=== PATIENT | male | born 1970 | race Caucasian/White ===

== ENCOUNTER → 2017-10-25 | Outpatient (CLI) | payer OTHER | LOC: FIMAGING 09:24 | PROVIDERS: ATTEND Surgery | DX: K44.9 Diaphragmatic hernia without obstruction or gangrene (principal) ==

== ENCOUNTER 2017-11-17 05:50 | Observation (INO) | payer OTHER ==
--- NOTE | 2017-11-16 21:10 | GHP ---
A 48-year-old male who is admitted at this time for laparoscopic hiatal hernia repair and Raghavendra fund oplication. He has frequent GERD type symptoms, as well as bloating and constipation. His workup sheikh s demonstrated a hiatal hernia. Risks and options have been fully discussed, and he wishes to procee d with laparoscopic Raghavendra fundoplication. ALLERGIES: Doxycycline, Benadryl, and ampicillin. PAST MEDICAL HISTORY: Includes some exercise asthma, GERD, migraines, right upper quadrant abdominal pain. PAST SURGICAL HISTORY: Includes an ACL repair. FAMILY HISTORY: Positive for colon cancer and ulcerative colitis. SOCIAL HISTORY: Reveals he does not smoke. MEDICATIONS: Nexium and Excedrin. REVIEW OF SYSTEMS: Reveals he has had some black tarry stools, bloating, heartburn, and recurrent st omach pain. No other major medical problems on a full 10-point review of systems. PHYSICAL EXAMINATION: GENERAL: Reveals an alert 48-year-old male in no acute distress. HEAD AND NE CK: Exam benign, without icterus, adenopathy, oral lesions. NECK: Supple, nontender. CHEST: Qing r to auscultation and percussion. CARDIAC: Regular rhythm without murmurs. ABDOMEN: Soft, nontend er, without masses, organomegaly, or bruits. There are no inguinal hernias. GENITALIA: Normal. EX TREMITIES: Benign. Full range of motion. Full pulses. NEUROLOGIC: Physiologic. PSYCH: Reveals him to be alert, oriented, and cooperative. IMPRESSION: Symptomatic hiatal hernia. PLAN: Laparoscopic Raghavendra fundoplication and hiatal hernia repair. /[id number]/MODL
[2017-11-17] MEDS ORDERED: ceFAZolin 2 GM/DEXTROSE 100 ML IV ONE (05:59)
[2017-11-17] MEDS ORDERED: LR 1,000 ML IV ONE (06:00)
[2017-11-17] MEDS ORDERED: LIDOCAINE 1% 2 ML INJ ID PRN (06:00)
[2017-11-17] MEDS ORDERED: ACETAMINOPHEN 500 MG TAB PO PRN (06:57)
[2017-11-17] MEDS ORDERED: MIDAZOLAM 2 MG/2 ML VIAL IVP ONE (06:57)
[2017-11-17] MEDS ORDERED: ALBUTEROL 3 ML DEYVIAL IH PRN (06:57)
[2017-11-17] MEDS ORDERED: ONDANSETRON 4 MG/2 ML VIAL IVP PRN (06:57)
[2017-11-17] MEDS ORDERED: HYDROmorphONE/DILAUDID 2 MG/ML INJ IVP PRN (06:57)
[2017-11-17] MEDS ORDERED: NALOXONE HCL 0.4 MG/ML INJ IVP PRN ×2 (06:57→12:57)
[2017-11-17] MEDS ORDERED: DEXAMETHASONE 4 MG/ML VIAL IVP PRN (06:57)
[2017-11-17] MEDS ORDERED: oxyCODONE IR 5 MG TAB PO PRN (06:57)
--- NOTE | 2017-11-17 06:59 | PDANEPAE ---
ANE History of Present Illness Mariann RIVERA Past Medical History - Cardiovascular History Hx Hypertension: No Hx Arrhythmias: No Hx Chest Pain: No Hx Coronary Artery / Peripheral Vascular Disease: No Hx CHF / Valvular Disease: No Hx Palpitations: No - Pulmonary History Hx COPD: No Hx Asthma/Reactive Airway Disease: Yes Hx Recent Upper Respiratory Infection: No Hx Oxygen in Use at Home: No Hx Sleep Apnea: No Sleep Apnea Screening Result - Last Documented: Negative Pulmonary History Comment: SINCE CHILDHOOD WITH EXERCISE CAN GET SOME MILD SOB NEVER HAS USED INHALER - Neurologic History Hx Cerebrovascular Accident: No Hx Seizures: No Hx Dementia: No - Endocrine History Hx Diabetes: No - Renal History Hx Renal Disorders: No - Liver History Hx Hepatic Disorders: No - Neurological & Psychiatric Hx Hx Neurological and Psychiatric Disorders: No - Cancer History Hx Cancer: No - Congenital Disorder History Hx Congenital Disorders: No - GI History Hx Gastrointestinal Disorders: Yes Gastrointestinal History Comment: HIATAL HERNIA. PREV EGD X3 - Other Health History Other Health History: NEG - Chronic Pain History Chronic Pain: Yes (UMBILICAL AREA) - Surgical History Prior Surgeries: ELIANA ACL REPAIRS ANE Review of Systems Review of Systems: - Exercise capacity METS (RN): 4 METS ANE Patient History - Allergies Allergies/Adverse Reactions: ampicillin Allergy (Verified 11/14/17 15:06) Hives diphenhydramine [From Benadryl] Allergy (Verified 11/14/17 14:47) Hives doxycycline Allergy (Verified 11/14/17 15:06) Hives - Home Medications Home Medications: Amitriptyline HCl HS 11/14/17 [Last Taken 11/16/17 20:00] Herbals/Supplements -Info Only DAILY 11/14/17 [Last Taken 11/16/17 07:00] Nexium HS 11/14/17 [Last Taken 11/16/17 20:00] - NPO status NPO Since - Liquids (Date): 11/17/17 NPO Since - Liquids (Time): 21:00 NPO Since - Solids (Date): 11/16/17 NPO Since - Solids (Time): 20:30 - Smoking Hx Smoking Status: Never smoked ANE Labs/Vital Signs - Vital Signs Blood Pressure: 145/108 Heart Rate: 81 Respiratory Rate: 18 O2 Sat (%): 92 Height: 185.42 cm Weight: 99.79 kg ANE Physical Exam - Airway Neck exam: FROM Mallampati Score: Class 2 Mouth exam: normal dental/mouth exam - Pulmonary Pulmonary: clear to auscultation - Cardiovascular Cardiovascular: regular rate and rhythym - ASA Status ASA Status: II ANE Anesthesia Plan Anesthesia Plan: general endotracheal anesthesia
[2017-11-17] MEDS ORDERED: PROPOFOL 200 MG/20 ML VIAL ONE ×2 (07:01→09:21)
[2017-11-17] MEDS ORDERED: ROCURONIUM 50 MG/5 ML VIAL ONE ×3 (07:02→09:03)
--- NOTE | 2017-11-17 07:02 | PDHPUP ---
History & Physical Update H&P update statement: This history and physical update is based on an assessment of the patient which was completed after admission or registration (within 24 hours), but prior to the surgery/procedure. H&P update: H&P reviewed & patient examined, no change in patient's condition since H&P completed
[2017-11-17] MEDS ORDERED: LIDOCAINE 2% 2 ML INJ ONE ×2 (07:03)
[2017-11-17] MEDS ORDERED: fentaNYL 250 MCG/5 ML INJ ONE (07:03)
[2017-11-17] MEDS ORDERED: DEXAMETHASONE 4 MG/ML VIAL ONE ×2 (07:05)
[2017-11-17] MEDS ORDERED: ONDANSETRON 4 MG/2 ML VIAL ONE (07:05)
[2017-11-17] MEDS ORDERED: HEPARIN 1000 UNIT/1 ML MDV ONE (07:13)
[2017-11-17] MEDS ORDERED: BUPIVACAINE 0.5% 30 ML SDV ONE (07:13)
[2017-11-17] MEDS ORDERED: ceFAZolin 1 GM/5 ML SYR ONE (07:14)
[2017-11-17] MEDS ORDERED: SUGAMMADEX SODIUM 200 MG/2 ML VIAL IVP ONE (09:16)
[2017-11-17] MEDS ORDERED: fentaNYL 100 MCG/2 ML INJ ONE ×2 (09:20→09:56)
--- NOTE | 2017-11-17 09:33 | POSTANESTH ---
Post Anesthetic Evaluation Cardiovascular Status: Normal, Stable Respiratory Status: Normal, Stable Level of Consciousness/Mental Status: Can Participate in Eval, Mildly Sleepy, Arousable Pain Control: Adequate, Prn Tx Ordered Nausea/Vomiting Control: Adequate, Prn Tx Ordered Complications Possibly Related to Anesthesia: None Noted
[2017-11-17] MEDS ORDERED: HYDROmorphONE/DILAUDID 1 MG/ML INJ IVP PRN (09:34)
[2017-11-17] MEDS ORDERED: ACETAMINOPHEN 325 MG TAB PO PRN (09:35)
--- NOTE | 2017-11-17 09:37 | POSTOPPROG ---
Post Op Note Date of Operation: 11/17/17 Surgeon: Alcides Muñoz Embedded Engineer: David Anesthesiologist: Lani Anesthesia: GET(General Endotracheal) Pre-op Diagnosis: Paraesophageal hernia Post-op Diagnosis: same Indication: same, pain Procedure: Laparoscopic paraesophageal hernia repair and cecelia fundoplication Findings: most of stomach in thorax Inf/Abcess present in the surg proc area at time of surgery?: No Depth: Organ Space EBL: Minimal
[2017-11-17] MEDS: fentaNYL 100 MCG/2 ML INJ IVP PRN ×2 (10:00→10:09)
[2017-11-17] MEDS: KETOROLAC 15 MG/1 ML SDV IVP SCH ×3 (11:40→23:07)
[2017-11-17] MEDS: POTASSIUM Cl (KCl) 10 MEQ in D5W 1/2 NS 1,000 ML IV SCH (11:44)
[2017-11-17] MEDS: ONDANSETRON 4 MG/2 ML VIAL IVP PRN ×3 (11:53→23:07)
[2017-11-17] MEDS: HYDROmorphONE/DILAUDID 6 MG/30 ML PCA IV PRN (13:04)
[2017-11-17] MEDS: PANTOPRAZOLE SODIUM 40 MG TAB PO SCH (20:28)
[2017-11-17] MEDS: AMITRIPTYLINE HCL 10 MG TAB PO SCH (20:28)
[2017-11-18] MEDS: HYDROmorphONE/DILAUDID 6 MG/30 ML PCA IV PRN (01:06)
[2017-11-18] MEDS: POTASSIUM Cl (KCl) 10 MEQ in D5W 1/2 NS 1,000 ML IV SCH ×2 (05:45→10:25)
[2017-11-18] MEDS: KETOROLAC 15 MG/1 ML SDV IVP SCH ×4 (05:45→23:11)
[2017-11-18] MEDS ORDERED: PNEUMOCOCCAL 0.5ML VACCINE VIAL IM ONE (09:48)
[2017-11-18] MEDS ORDERED: OXYCODONE/APAP 5/325 TAB PO PRN (13:12)
--- NOTE | 2017-11-18 13:27 | SOAPPROG ---
SOAP Progress Note Assessment/Plan: Assessment: sp lap cecelia/ wounds ok/ abd soft with bs/ afebrile/ tolerating clears Plan:advance diet/ possibly home today or in am 11/18/17 13:25 Objective: Vital Signs Temp Pulse Resp BP Pulse Ox 36.7 C 67 12 133/80 H 88 L 11/18/17 12:00 11/18/17 12:00 11/18/17 12:00 11/18/17 12:00 11/18/17 12:00 11/17/17 11/18/17 11/19/17 05:59 05:59 05:59 Intake Total 1716 Output Total 1985 6111 Balance -269 1224 ICD10 Worksheet Patient Problems: Problems Problem Status Onset Paraesophageal hernia with obstruction but no gangrene Acute - ICD10 Problem Qualifiers (1) Paraesophageal hernia with obstruction but no gangrene
[2017-11-18] MEDS: OXYCODONE/APAP 5/325 TAB PO PRN ×2 (13:47→20:05)
--- NOTE | 2017-11-18 14:27 | ASMTCMCOM ---
CM Note CM Note Notes: Spoke w/RN, pt admitted for scheduled hernia surgery. Anticipate he will dc home w/support of when medically stable. CM available for any changes. DC Plan: Independent Date Signed: 11/18/2017 02:26 PM Electronically Signed By:Amna Haney RN
[2017-11-18] MEDS: PANTOPRAZOLE SODIUM 40 MG TAB PO SCH (20:06)
[2017-11-18] MEDS: AMITRIPTYLINE HCL 10 MG TAB PO SCH (20:06)
[2017-11-19] MEDS: KETOROLAC 15 MG/1 ML SDV IVP SCH (05:15)
[2017-11-19 08:22] VITALS: BP 152/102
[2017-11-19] MEDS: OXYCODONE/APAP 5/325 TAB PO PRN ×2 (08:23)
--- NOTE | 2017-11-19 09:22 | SOAPPROG ---
SOAP Progress Note Assessment/Plan: Assessment: sp lap cecelia/ wounds ok/ abd soft with bs/ afebrile/ tolerating clears Plan:advance diet/ possibly home today or in am 11/18/17 13:25 11/19/17 09:21 FEELING BETTER/AFEBRILE/WOUND OKAY/POSITIVE FLATUS ABDOMEN IS SOFT WITH BOWEL SOUNDS AND NONTENDER SWALLOWING BETTER/ HOME TODAY/RESTRICTIONS DISCUSSED Objective: Vital Signs Temp Pulse Resp BP Pulse Ox 36.9 C 79 14 152/102 H 91 L 11/19/17 08:00 11/19/17 08:00 11/19/17 08:00 11/19/17 08:00 11/19/17 08:00 11/18/17 11/19/17 11/20/17 05:59 05:59 05:59 Intake Total 0135 Output Total 6781 5503 1100 [facility] -[phone] ICD10 Worksheet Patient Problems: Problems Problem Status Onset Paraesophageal hernia with obstruction but no gangrene Acute - ICD10 Problem Qualifiers (1) Paraesophageal hernia with obstruction but no gangrene
--- NOTE | 2017-11-19 14:46 | GOP ---
DATE OF OPERATION: 11/17/2017 SURGEON: Alcides Muñoz MD LEGEND MAKER: Felecia Hernandez, nurse practitioner. ANESTHESIOLOGIST: Brian Garibay DO. PREOPERATIVE DIAGNOSIS: Paraesophageal hernia with obstruction. POSTOPERATIVE DIAGNOSIS: Paraesophageal hernia with obstruction. PROCEDURE PERFORMED: Laparoscopic repair of paraesophageal hernia with Raghavendra fundoplication. FINDINGS: Patient was found to have 80% of his stomach up in the chest in a paraesophageal position with a moderate twisting and obstruction of the stomach. It was all viable and easily delivered back down into the abdomen. DESCRIPTION OF PROCEDURE: The patient was taken to the operating room where he received a satisfacto ry general endotracheal anesthesia by Dr. Garibay. He was placed in the supine position in low split-l eg stirrups. He was prepped and draped in the usual sterile fashion. Epigastric incision was made. A Veress needle inserted. Pneumoperitoneum was established. Trocar was introduced. Laparoscope in troduced. Good visualization was obtained. Four other trocars were placed in the upper abdomen unde r direct vision, and a liver tractor was used to elevate up the left lateral segment of the liver. T he hiatus was exposed. The stomach was reduced out of the chest as noted above. It was partially tw isted but was able to be brought down relatively easily. Diaphragmatic arpita was then identified and skeletonized by dividing the hernia sac with the Harmonic Scalpel. The retroesophageal space was cre ated and the crura were free exposed. The diaphragm was then closed with interrupted 0 Ethibond sutu res. Five sutures were placed snugging up the hiatus. The greater curvature of the stomach was mobi lized and the short gastrics were divided. With the Harmonic Scalpel, the fundus was then passed in the retroesophageal position and a Raghavendra fundoplication wrap was created again with 0 Ethibond sutur es securing the anterior wall of the stomach to the anterior wall of the esophagus and then to the Ni ssen wrap. This was done with 3 sutures and one adhering it to the diaphragmatic hiatus. Hemostasis was assured. The wound was irrigated. The blood loss was negligible. The trocars were removed und er direct vision. Trocar sites were closed with 4-0 Monocryl subcuticular sutures. All layers were infiltrated with 0.5% Marcaine. Blood loss was negligible. There were no complications. Taken to t he recovery room in good condition. /[id number]/MODL
--- NOTE | 2017-11-19 15:00 | ASMTDCNOTE ---
Case Management Discharge Discharge Order Complete? Answers: Yes Patient to Obtain Answers: via Family Medications Transportation Arranged Answers: Family/Friends Discharge Comments Notes: CM discussed with RN, patient to discharge home independently today. Patient has [employer] coverage. Patient to follow up as recommended. CM available if any further CM needs arise. Date Signed: 11/19/2017 02:59 PM Electronically Signed By:Mahnaz Sharpe
== END 2017-11-19 10:27 | disposition home or self-care (01) ==
LOC: F3E 05:50
PROVIDERS: ADMIT Surgery; ATTEND Surgery
PROC: 0DV44ZZ Restriction of Esophagogastric Junction, Percutaneous Endoscopic Approach (ICD-10-PCS; principal; 2017-11-17 07:15)
DX: K44.0 Diaphragmatic hernia with obstruction, without gangrene (principal); Z23 Encounter for immunization; J45.998 Other asthma
CPT/HCPCS: 43281; 90471; G0378; G0008; G0009; J0690; J1100; J1170; J1885; J2250; J2405; J2704; J3010; J3480